=== PATIENT | female | born 1990 | race Caucasian/White ===

== ENCOUNTER 2016-06-03 11:03 | Inpatient (IN) | payer BC, OTHER ==
[2016-06-03] MEDS ORDERED: DIPHENHYDRAMINE HCL 50 MG/ML VIAL IV ONE (11:06)
[2016-06-03] MEDS ORDERED: METHYLPREDNISOLONE INJ 125 MG/2 ML SDV IV ONE (11:06)
[2016-06-03] MEDS ORDERED: FAMOTIDINE INJ/PF 20 MG/2 ML SDV IV ONE (11:07)
[2016-06-03] MEDS ORDERED: EPINEPHRINE INJ/PF 1 MG/1 ML AMPULE IM ONE (11:08)
--- NOTE | 2016-06-03 11:09 | ER Document Report ---
ED Medical Screen (RME) - General Chief Complaint: Allergic Reaction Stated Complaint: POSSIBE ALLERGIC RECTION Mode of Arrival: Wheelchair Information source: Patient Notes: Patient complains of allergic reaction possibly that started after eating nuts. Patient complains of throat swelling and difficulty breathing. Patient states she used EpiPen 2 prior to arrival without improvement of her symptoms. - Related Data Allergies/Adverse Reactions: acetaminophen [From Tylenol] Allergy (Verified 04/15/13 19:15) amoxicillin [Amoxicillin] Allergy (Verified 04/15/13 19:15) azithromycin [From Zithromax Z-Iglesia] Allergy (Verified 04/15/13 19:15) morphine [Morphine] Allergy (Verified 04/15/13 19:15) Penicillins Allergy (Verified 04/15/13 19:15) pineapple [Pineapple] Allergy (Verified 04/15/13 19:15) Shellfish * [Shellfish] Allergy (Verified 04/15/13 19:15) Sulfa (Sulfonamide Antibiotics) Allergy (Verified 04/15/13 19:15) venlafaxine HCl [From Effexor] Allergy (Verified 04/15/13 19:15) Past Medical History Pulmonary Medical History: Reports: Hx Asthma Psychiatric Medical History: Reports: Hx Bipolar Disorder - Immunizations Hx Diphtheria, Pertussis, Tetanus Vaccination: No Physical Exam - HEENT Pharynx: Uvular edema Notes: Voice hoarse
[2016-06-03] MEDS ORDERED: RACEPINEPHRINE HCL 2.25% NEB 0.5 ML AMPUL NEB ONE ×2 (11:26→11:31)
[2016-06-03] MEDS ORDERED: LORAZEPAM INJ 2 MG/1 ML VIAL ONE (11:27)
[2016-06-03] MEDS ORDERED: LORAZEPAM INJ 2 MG/1 ML VIAL IV ONE ×2 (11:32→13:26)
[2016-06-03] MEDS ORDERED: NORMAL SALINE 1000 ML 1,000 ML IV ONE (11:32)
--- NOTE | 2016-06-03 11:38 | ER Document Report ---
ED Allergic Reaction - General Chief Complaint: Allergic Reaction Stated Complaint: POSSIBE ALLERGIC RECTION Mode of Arrival: Wheelchair Information source: Patient Notes: This is a 26-year-old female who presents with concern for allergic reaction. She is uncertain as to the trigger of her reaction however she did used to EpiPen at home prior to arrival. She states that about 30 minutes prior to arrival she began feeling tightness in her throat and trouble breathing. She also states that her tongue feels itchy but not swollen. She denies any nausea or vomiting. She has had no rash or hives or generalized pruritus. She states that she felt fine when she awoke this morning and that at about 09 100 she ate a breakfast of wal[place] and eggs and some nuts which are the same nuts that she eats every morning. She also states that about an hour prior to her symptoms she did use someone else's Chapstick. Of note the patient has a prior history of allergic reaction which required hospital admission. She has never been intubated. She states that she did require an epi drip during her last admission. - Related Data Allergies/Adverse Reactions: acetaminophen [From Tylenol] Allergy (Verified 04/15/13 19:15) amoxicillin [Amoxicillin] Allergy (Verified 04/15/13 19:15) azithromycin [From Zithromax Z-Iglesia] Allergy (Verified 04/15/13 19:15) morphine [Morphine] Allergy (Verified 04/15/13 19:15) Penicillins Allergy (Verified 04/15/13 19:15) pineapple [Pineapple] Allergy (Verified 04/15/13 19:15) Shellfish * [Shellfish] Allergy (Verified 04/15/13 19:15) Sulfa (Sulfonamide Antibiotics) Allergy (Verified 04/15/13 19:15) venlafaxine HCl [From Effexor] Allergy (Verified 04/15/13 19:15) Home Medications: Current Home Medications Bupropion HCl [Wellbutrin Sr 150 mg Tablet] 150 mg PO Q12 06/03/16 [History] Gabapentin [Neurontin 400 mg Capsule] 400 mg PO Q12 06/03/16 [History] Past Medical History - General Information source: Patient - Social History Smoking Status: Former Smoker Frequency of alcohol use: Occasional Drug Abuse: Marijuana Family History: Reviewed & Not Pertinent, Malignancy Pulmonary Medical History: Reports: Hx Asthma Neurological Medical History: Reports: Hx Migraine Renal/ Medical History: Denies: Hx Peritoneal Dialysis Psychiatric Medical History: Reports: Hx Bipolar Disorder Past Surgical History: Reports: Hx Appendectomy, Hx Cholecystectomy, Hx Tonsillectomy - Immunizations Hx Diphtheria, Pertussis, Tetanus Vaccination: No Review of Systems - Review of Systems Notes: REVIEW OF SYSTEMS: CONSTITUTIONAL : Denies fever, chills, or sweats. Denies recent illness. EENT: as per HPI Denies nasal or sinus congestion. CARDIOVASCULAR: Denies chest pain. RESPIRATORY: Denies cough, cold, or chest congestion. otherwise as per HPI GASTROINTESTINAL: Denies abdominal pain. Denies nausea, vomiting, or diarrhea. GENITOURINARY: Denies difficulty urinating, painful urination, burning, frequency, or blood in urine. MUSCULOSKELETAL: Denies neck or back pain or joint pain or swelling. SKIN: Denies rash or skin lesions. HEMATOLOGIC : Denies easy bruising or bleeding. LYMPHATIC: Denies swollen, enlarged glands. NEUROLOGICAL: Denies altered mental status or loss of consciousness. Denies headache. PSYCHIATRIC: anxiety ALL OTHER SYSTEMS REVIEWED AND NEGATIVE. Physical Exam - Vital signs Vitals: Temp Pulse Resp BP Pulse Ox 98.1 F 118 H 22 H 124/81 100 06/03/16 11:06 06/03/16 11:06 06/03/16 11:06 06/03/16 11:06/03/16 11:06 - Notes Notes: PHYSICAL EXAMINATION: GENERAL: Well-appearing, well-nourished and in moderate distress and anxious, tense neck muscles and audible stridor, but able to speak in complete sentences and is very talkative HEAD: Atraumatic, normocephalic. EYES: Pupils equal round and reactive to light, extraocular movements intact, sclera anicteric, conjunctiva are normal. ENT: nares patent, oropharynx clear without exudates. Moist mucous membranes. There is no lip swelling, tongue swelling, or soft palate swelling noted. Uvula midline and normal. NECK: Normal range of motion, supple without lymphadenopathy LUNGS: Breath sounds clear to auscultation bilaterally and equal. No wheezes rales or rhonchi. Upper airway stridor noted. HEART: Regular rhythm, tachycardic rate without murmurs ABDOMEN: Soft, nontender, normoactive bowel sounds. No guarding, no rebound. No masses appreciated. EXTREMITIES: Normal range of motion, no pitting or edema. No cyanosis. NEUROLOGICAL: Cranial nerves grossly intact. Normal sensory and motor exam PSYCH: anxious affect SKIN: Warm, Dry, normal turgor, no rashes or lesions noted. Course - Re-evaluation Re-evalutation: 06/03/16 11:35 On initial presentation this patient appeared very anxious. Despite her anxiety she was very talkative and was able to speak in clear complete sentences with no problem. She did have some audible stridor with inspiration but was somewhat distractible and able to speak clearly. As noted her initial exam showed no lip swelling, tongue edema, oral swelling, or soft palate edema. Lungs demonstrated no wheezing. She was conversant and maintaining her sats at 100% on room air. Given concern for allergic reaction and her prior history she will initially be treated with IV Solu-Medrol, Benadryl, and Pepcid. Have also ordered a racemic epi neb. Also she will be given 1 mg of Ativan IV as I feel there is some component of anxiety to her symptoms. I stayed in the room with the patient for the initial 10 minutes while she was receiving these medications and she calmed down considerably and was able to speak clearly and her stridor resolved. She will continue to require frequent reassessments. 06/03/16 11:46 Patient reevaluated. She states she feels a lot better and is speaking clearly. Her lungs are clear to auscultation bilaterally and she satting 100% on room air 06/03/16 13:32 Patient remained hemodynamically stable. She is still satting 100% on room air. She is able to speak in complete sentences but she states that she feels like her throat is getting somewhat tighter again. I hear no audible stridor and her lungs are clear to auscultation bilaterally. At this point we discussed admission for observation given her history of anaphylaxis in the past and her recurrence of symptoms here in the emergency department today. She is agreeable with this plan. I discussed her case with the hospitalist Dr. Collado who will admit the patient. - Vital Signs Vital signs: Temp Pulse Resp BP Pulse Ox 98.6 F 120 H 16 107/60 99 06/03/16 19:41 06/03/16 19:41 06/03/16 19:41 06/03/16 19:41 06/03/16 19:41 - Laboratory Result Diagrams: 06/03/16 11:14 06/03/16 11:14 Laboratory results interpreted by me: 06/03/16 11:14 BUN 22 H - Diagnostic Test Radiology reviewed: Reports reviewed Critical Care Note - Critical Care Note Total time excluding time spent on procedures (mins): 35 Comments: minutes of critical care time spent in direct contact evaluating and reevaluating the patient, treating symptoms, reviewing labs and studies and speaking with family and consultants excluding any procedures Discharge - Discharge Clinical Impression: Anxiety Allergic reaction Qualifiers: Encounter type: initial encounter Qualified Code(s): T78.40XA - Allergy, unspecified, initial encounter Condition: Stable Disposition: ADMITTED OBSERVATION Admitting Provider: Hospitalist - [facility]
[2016-06-03] MEDS ORDERED: ALBUTEROL SULFATE 0.083% NEB 2.5 MG/3 ML AMPUL NEB ONE (12:10)
[2016-06-03 13:50] LABS: ABSOLUTE BASOPHILS # (AUTO) 0.1 10^3/uL (0.0-0.2); ABSOLUTE EOSINOPHILS # (AUTO) 0.1 10^3/uL (0.0-0.6); ABSOLUTE LYMPHOCYTES (AUTO) 3.4 10^3/uL (0.5-4.7); ABSOLUTE MONOCYTES (AUTO) 0.8 10^3/uL (0.1-1.4); ABSOLUTE NEUT (AUTO) 4.6 10^3/uL (1.7-8.2); BASOPHILS % (AUTO) 0.8 % (0-2); EOSINOPHILS % (AUTO) 0.6 % (0-6); HEMATOCRIT 42.8 % (36.0-47.0); HEMOGLOBIN 14.3 g/dL (12.0-15.5); HGB HCT DIFFERENCE 0.1; MEAN CORPUSCULAR HEMOGLOBIN 29.5 pg (27.0-33.4); MEAN CORPUSCULAR HGB CONC 33.4 g/dL (32.0-36.0); MEAN CORPUSCULAR VOLUME 88 fl (80-97); MONOCYTES % (AUTO) 9.4 % (3-13); RED BLOOD COUNT 4.85 10^6/uL (3.72-5.28); RED CELL DISTRIBUTION WIDTH 13.3 % (11.5-14.0); SEGMENTED NEUTROPHILS % (AUTO) 51.2 % (42-78); WHITE BLOOD COUNT 8.9 10^3/uL (4.0-10.5)
[2016-06-03 14:05] LABS: ALANINE AMINOTRANSFERASE 33 U/L (9-52); ALBUMIN 4.6 g/dL (3.5-5.0); ALKALINE PHOSPHATASE 60 U/L (38-126); ANION GAP 15 (5-19); ASPARTATE AMINO TRANSFERASE 29 U/L (14-36); BILIRUBIN,TOTAL 0.9 mg/dL (0.2-1.3); BLOOD UREA NITROGEN 22 mg/dL (7-20); CARBON DIOXIDE 24 mmol/L (22-30); CHLORIDE 103 mmol/L (98-107); CREATININE RESULT 1.08 mg/dL (0.52-1.25); GLUCOSE 107 mg/dL (75-110); POTASSIUM 4.1 mmol/L (3.6-5.0); SODIUM 142.3 mmol/L (137-145); TOTAL PROTEIN 7.9 g/dL (6.3-8.2)
--- NOTE | 2016-06-03 14:20 | PDOC H&P ---
History of Present Illness Admission Date/PCP: 06/03/16 13:58 Patient complains of: Shortness of breath History of Present Illness: MONIKA ARAGON is a 26 year old female who is had previous episodes of anaphylaxis who presented with shortness of breath and anaphylaxis. Patient reports that she was at work and began to feel chest tightness and throat tightness and took an EpiPen. Approximately 5 minutes later she had return of her symptoms and give himself another EpiPen and came into the hospital. The patient reports that she had her usual breakfast which included nuts which she has been eating this for years and had no unusual or new exposures. Patient did borrow a Chapstick from a coworker but the coworker did not use this after eating anything that the patient is allergic to. 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 The patient according to emergency physician did have upper airway stridor when she presented. At the time my exam all her symptoms have resolved. The patient is allergic to multiple medications and foods and she has never seen an developing machine operator or floatlight loading supervisor. Past Medical History Pulmonary Medical History: Reports: Asthma Neurological Medical History: Reports: Migraine Endocrine Medical History: Reports: None Renal/ Medical History: Reports: None Malignancy Medical History: Reports: None GI Medical History: Reports: None Musculoskeltal Medical History: Reports: None Skin Medical History: Reports: None Psychiatric Medical History: Reports: Bipolar Disorder Hematology: Reports: None Infectious Medical History: Reports: None Past Surgical History Past Surgical History: Reports: Appendectomy, Cholecystectomy, Tonsillectomy Social History Information Source: Patient Lives with: Spouse/Significant other Smoking Status: Former Smoker Frequency of Alcohol Use: Occasional Hx Recreational Drug Use: No Drugs: Marijuana - Advance Directive Resuscitation Status: Full Code Family History Family History: Malignancy Family History: Father at age 51 from prostate cancer. Mother is 49 alive and healthy. Parental Family History Reviewed: Yes Children Family History Reviewed: No Sibling(s) Family History Reviewed.: No Medication/Allergy Allergies/Adverse Reactions: acetaminophen [From Tylenol] Allergy (Verified 04/15/13 19:15) amoxicillin [Amoxicillin] Allergy (Verified 04/15/13 19:15) azithromycin [From Zithromax Z-Iglesia] Allergy (Verified 04/15/13 19:15) morphine [Morphine] Allergy (Verified 04/15/13 19:15) Penicillins Allergy (Verified 04/15/13 19:15) pineapple [Pineapple] Allergy (Verified 04/15/13 19:15) Shellfish * [Shellfish] Allergy (Verified 04/15/13 19:15) Sulfa (Sulfonamide Antibiotics) Allergy (Verified 04/15/13 19:15) venlafaxine HCl [From Effexor] Allergy (Verified 04/15/13 19:15) Review of Systems Constitutional: ABSENT: chills, fever(s), headache(s), weight gain, weight loss Eyes: ABSENT: visual disturbances Ears: ABSENT: hearing changes Nose, Mouth, and Throat: PRESENT: other - Anaphylaxis with throat tightening and tongue swelling Cardiovascular: ABSENT: chest pain, dyspnea on exertion, edema, orthropnea, palpitations Respiratory: PRESENT: as per HPI Gastrointestinal: ABSENT: abdominal pain, constipation, diarrhea, hematemesis, hematochezia, nausea, vomiting Genitourinary: ABSENT: dysuria, hematuria Musculoskeletal: ABSENT: joint swelling Integumentary: ABSENT: rash, wounds Neurological: ABSENT: abnormal gait, abnormal speech, confusion, dizziness, focal weakness, syncope Psychiatric: PRESENT: anxiety Endocrine: ABSENT: cold intolerance, heat intolerance, polydipsia, polyuria Hematologic/Lymphatic: ABSENT: easy bleeding, easy bruising Physical Exam Vital Signs: Temp Pulse Resp BP Pulse Ox 98.1 F 118 H 18 123/65 99 06/03/16 11:06 06/03/16 11:06 06/03/16 13:01 06/03/16 13:01 06/03/16 13:01 General appearance: PRESENT: no acute distress, well-developed, well-nourished Head exam: PRESENT: atraumatic, normocephalic Eye exam: PRESENT: conjunctiva pink, EOMI, PERRLA. ABSENT: scleral icterus Ear exam: PRESENT: normal external ear exam Mouth exam: PRESENT: moist, tongue midline Neck exam: ABSENT: carotid bruit, JVD, lymphadenopathy, thyromegaly Respiratory exam: PRESENT: clear to auscultation casimiro. ABSENT: rales, rhonchi, wheezes Cardiovascular exam: PRESENT: tachycardia. ABSENT: diastolic murmur, rubs, systolic murmur Pulses: PRESENT: normal dorsalis pedis pul Vascular exam: PRESENT: normal capillary refill GI/Abdominal exam: PRESENT: normal bowel sounds, soft. ABSENT: distended, guarding, mass, organolmegaly, rebound, tenderness Rectal exam: PRESENT: deferred Extremities exam: ABSENT: calf tenderness, clubbing, pedal edema Neurological exam: PRESENT: alert, awake, oriented to person, oriented to place , oriented to time, oriented to situation, CN II-XII grossly intact. ABSENT: motor sensory deficit Psychiatric exam: PRESENT: appropriate affect Skin exam: PRESENT: dry, intact, warm. ABSENT: cyanosis, rash Results Impressions: Chest X-Ray 06/03/16 11:37 IMPRESSION: Patchy bibasilar infiltrates. Soft Tissue Neck X-Ray 06/03/16 11:37 IMPRESSION: NEGATIVE STUDY OF THE SOFT TISSUES OF THE NECK. Assessment & Plan - Diagnosis (1) Allergic reaction Qualifiers: Encounter type: initial encounter Qualified Code(s): T78.40XA - Allergy , unspecified, initial encounter Is this a current diagnosis for this admission?: YesPlan: It's unclear what she reacted to. Patient did have this morning but has eaten nuts every morning for breakfast for quite some time. Patient received Solu- Medrol, Pepcid, epinephrine. We'll continue with the Solu-Medrol and hips it. If she does well over the next several hours she could possibly be discharged to home. I have encouraged the patient to follow-up with developing machine operator or floatlight loading supervisor after discharge. (2) Migraine Is this a current diagnosis for this admission?: YesPlan: Patient has been treating her migraines with Neurontin and Wellbutrin. (3) Anxiety Is this a current diagnosis for this admission?: YesPlan: Patient is taking Wellbutrin. - Time Time Spent: 50 to 70 Minutes - Plan Summary Plan Summary: Patient will be admitted as observation as I anticipate this will require less than a 2 midnight hospital stay.
[2016-06-03] MEDS: ALBUTEROL SULFATE 0.083% NEB 2.5 MG/3 ML AMPUL NEB PRN (15:10)
[2016-06-03] MEDS: LORAZEPAM 1 MG TABLET PO PRN ×2 (15:37→20:15)
[2016-06-03] MEDS: METHYLPREDNISOLONE INJ 40 MG/1 ML SDV IV SCH (17:18)
[2016-06-03] MEDS ORDERED: EPINEPHRINE INJ/PF 1 MG/1 ML AMPULE ONE (18:14)
[2016-06-03] MEDS ORDERED: EPINEPHRINE INJ/PF 1 MG/1 ML AMPULE SUBCUT ONE (18:45)
[2016-06-03] MEDS: ONDANSETRON HCL INJ/PF 4 MG/2 ML SDV IV PRN (20:06)
[2016-06-03] MEDS: DIPHENHYDRAMINE HCL 50 MG/ML VIAL IV PRN (20:48)
[2016-06-04] MEDS: FAMOTIDINE INJ/PF 20 MG/2 ML SDV IV SCH ×3 (00:02→22:15)
[2016-06-04] MEDS: DIPHENHYDRAMINE HCL 50 MG/ML VIAL IV PRN ×2 (03:01→10:32)
[2016-06-04] MEDS: METHYLPREDNISOLONE INJ 40 MG/1 ML SDV IV SCH ×2 (03:01→09:15)
[2016-06-04] MEDS: LORAZEPAM 1 MG TABLET PO PRN ×2 (03:36→11:24)
[2016-06-04] MEDS: ALBUTEROL SULFATE 0.083% NEB 2.5 MG/3 ML AMPUL NEB PRN ×2 (08:44→12:01)
[2016-06-04] MEDS ORDERED: SUCCINYLCHOLINE CHLORIDE INJ 200 MG/10 ML VIAL ONE (10:02)
[2016-06-04] MEDS ORDERED: RACEPINEPHRINE HCL 2.25% NEB 0.5 ML AMPUL NEB ONE ×2 (12:13→19:26)
[2016-06-04] MEDS: ONDANSETRON HCL INJ/PF 4 MG/2 ML SDV IV PRN (13:15)
[2016-06-04] MEDS ORDERED: METHYLPREDNISOLONE INJ 125 MG/2 ML SDV ONE (14:42)
--- NOTE | 2016-06-04 14:56 | PDOC PROGRESS REPORT ---
Subjective Progress Note for:: 06/04/16 Subjective:: Having shortness of breath and stridor. History of asthma. Patient does not remember any substance that she took that could've triggered the reaction. No chills or fever. The sinus congestion or coughing. No reported chest congestion. There is intermittent wheezing. No nausea or vomiting. Physical Exam Vital Signs: Temp Pulse Resp BP Pulse Ox 98.9 F 130 H 19 105/48 L 100 06/04/16 12:15 06/04/16 12:15 06/04/16 12:15 06/04/16 12:15 06/04/16 12:15 Intake & Output 06/03/16 06/04/16 06/05/16 06:59 06:59 06:59 Intake Total 742 355 Output Total 2 Balance 742 353 Weight 60.4 kg General appearance: PRESENT: cooperative, mild distress, thin Head exam: PRESENT: normocephalic Eye exam: PRESENT: conjunctiva pink, EOMI, PERRLA Mouth exam: PRESENT: moist, neck supple Neck exam: ABSENT: JVD Respiratory exam: PRESENT: clear to auscultation casimiro - Anteriorly, wheezes - Minimal Cardiovascular exam: PRESENT: RRR, tachycardia GI/Abdominal exam: PRESENT: normal bowel sounds, soft. ABSENT: diminished bowel sounds, tenderness Extremities exam: ABSENT: pedal edema Neurological exam: PRESENT: alert, awake, oriented to situation Skin exam: PRESENT: dry, warm. ABSENT: cyanosis Results Impressions: Chest X-Ray 06/03/16 11:37 IMPRESSION: Patchy bibasilar infiltrates. Soft Tissue Neck X-Ray 06/03/16 11:37 IMPRESSION: NEGATIVE STUDY OF THE SOFT TISSUES OF THE NECK. Assessment & Plan - Diagnosis (1) Allergic reaction Qualifiers: Encounter type: initial encounter Qualified Code(s): T78.40XA - Allergy , unspecified, initial encounter Is this a current diagnosis for this admission?: Yes (2) Abnormal chest x-ray Is this a current diagnosis for this admission?: Yes (3) Anxiety Is this a current diagnosis for this admission?: Yes (4) Migraine Qualifiers: Migraine type: unspecified Status migrainosus presence: without status migrainosus Intractability: not intractable Qualified Code(s): G43.909 - Migraine, unspecified, not intractable, without status migrainosus Is this a current diagnosis for this admission?: Yes - Time Time Spent with patient: 25-34 minutes - Plan Summary Plan Summary: We will repeat chest x-ray and obtain an ABG. We are going to check soft tissue neck CT scan. We will give Benadryl scheduled, start Zyrtec, continue Pepcid, increase steroids, transferred to ICU for closer monitoring. Continue bronchodilators.
[2016-06-04] MEDS ORDERED: METHYLPREDNISOLONE INJ 40 MG/1 ML SDV IV SCH (15:00)
[2016-06-04] MEDS ORDERED: CETIRIZINE 10 MG TABLET PO ONE (16:00)
[2016-06-04 16:40] LABS: ARTERIAL BLOOD BASE EXCESS -2.9 mmol/L; ARTERIAL BLOOD O2 SATURATION 99.8 % (94-98)
[2016-06-04] MEDS ORDERED: PROMETHAZINE HCL INJ 25 MG/1 ML VIAL IV ONE (16:45)
[2016-06-04] MEDS ORDERED: EPINEPHRINE INJ/PF 1 MG/1 ML AMPULE SUBCUT ONE (17:30)
[2016-06-04] MEDS: DIPHENHYDRAMINE HCL 50 MG/ML VIAL IV SCH ×2 (17:32→23:34)
[2016-06-04] MEDS ORDERED: METHYLPREDNISOLONE INJ 125 MG/2 ML SDV IV SCH ×2 (18:00→21:00)
[2016-06-04] MEDS ORDERED: EPINEPHRINE INJ/PF 1 MG/1 ML AMPULE ONE (19:37)
[2016-06-04] MEDS ORDERED: PROPOFOL 100 ML IV ONE ×2 (19:40→20:08)
[2016-06-04] MEDS ORDERED: LORAZEPAM 24 MG/240 ML BAG IV PRN (20:00)
[2016-06-04] MEDS ORDERED: PHARMACY COMMUNICATION ORDER MC NR (20:00)
[2016-06-04] MEDS ORDERED: IPRATROPIUM/ALBUTEROL 0.5-2.5 MG/3 ML AMPUL NEB PRN (20:02)
[2016-06-04] MEDS ORDERED: POTASSI CL 20 MEQ/D5NS 1L 1,000 ML IV PRN (20:03)
[2016-06-04] MEDS ORDERED: LORAZEPAM INJ 2 MG/1 ML VIAL ONE (20:10)
[2016-06-04 21:37] LABS: VENOUS BLOOD BASE EXCESS -3.5 mmol/L; VENOUS BLOOD PCO2 41.3 mmHg (35-63); VENOUS BLOOD PH 7.34 (7.30-7.42)
[2016-06-04 21:38] LABS: HEMATOCRIT 35.9 % (36.0-47.0); HGB HCT DIFFERENCE -0.2; MEAN CORPUSCULAR HEMOGLOBIN 29.3 pg (27.0-33.4); MEAN CORPUSCULAR HGB CONC 33.2 g/dL (32.0-36.0); MEAN CORPUSCULAR VOLUME 88 fl (80-97); RED BLOOD COUNT 4.07 10^6/uL (3.72-5.28); RED CELL DISTRIBUTION WIDTH 13.7 % (11.5-14.0)
[2016-06-04 21:58] LABS: ANION GAP 11 (5-19); BAND NEUTROPHILS % (MANUAL) 2 % (3-5); BASOPHILS % (MANUAL) 0 % (0-2); BLOOD UREA NITROGEN 16 mg/dL (7-20); CALCIUM 8.8 mg/dL (8.4-10.2); CARBON DIOXIDE 22 mmol/L (22-30); CHLORIDE 108 mmol/L (98-107); CREATININE RESULT 0.89 mg/dL (0.52-1.25); EOSINOPHILS % (MANUAL) 0 % (0-6); GLUCOSE 165 mg/dL (75-110); LYMPHOCYTES % (MANUAL) 3 % (13-45); MAGNESIUM 1.9 mg/dL (1.6-2.3); POTASSIUM 4.7 mmol/L (3.6-5.0); SODIUM 140.8 mmol/L (137-145); TOTAL CELLS COUNTED 100
[2016-06-04 21:59] LABS: HYPOCHROMASIA SLIGHT
[2016-06-04 22:00] LABS: WHITE BLOOD COUNT 20.1 10^3/uL (4.0-10.5)
[2016-06-04] MEDS ORDERED: ENOXAPARIN SODIUM INJ 40 MG/0.4 ML DISP.SYRIN SUBCUT ONE (22:00)
[2016-06-04 22:01] LABS: HEMOGLOBIN 11.9 g/dL (12.0-15.5)
[2016-06-04] MEDS: METHYLPREDNISOLONE INJ 125 MG/2 ML SDV IV SCH (22:15)
[2016-06-04] MEDS: NORMAL SALINE 1000 ML 1,000 ML IV PRN (23:33)
[2016-06-04] MEDS: PROPOFOL 100 ML IV PRN (23:34)
[2016-06-05 00:24] LABS: APPEARANCE,URINE CLEAR; BILIRUBIN,URINE NEGATIVE (NEGATIVE); GLUCOSE, URINE NEGATIVE (NEGATIVE); KETONES,URINE NEGATIVE (NEGATIVE); LEUKOCYTE ESTERASE,URINE NEGATIVE (NEGATIVE); NITRITE,URINE NEGATIVE (NEGATIVE); PROTEIN,URINE NEGATIVE (NEGATIVE); UROBILINOGEN,URINE NEGATIVE mg/dL (<2.0)
[2016-06-05 04:14] LABS: HEMATOCRIT 36.1 % (36.0-47.0); HEMOGLOBIN 12.1 g/dL (12.0-15.5); HGB HCT DIFFERENCE 0.2; MEAN CORPUSCULAR HEMOGLOBIN 29.3 pg (27.0-33.4); MEAN CORPUSCULAR HGB CONC 33.4 g/dL (32.0-36.0); MEAN CORPUSCULAR VOLUME 88 fl (80-97); RED BLOOD COUNT 4.12 10^6/uL (3.72-5.28); RED CELL DISTRIBUTION WIDTH 13.5 % (11.5-14.0); WHITE BLOOD COUNT 18.5 10^3/uL (4.0-10.5)
[2016-06-05 04:20] LABS: VENOUS BLOOD BASE EXCESS -1.8 mmol/L; VENOUS BLOOD HCO3 23.6 mmol/L (20-32); VENOUS BLOOD PCO2 42.9 mmHg (35-63); VENOUS BLOOD PH 7.36 (7.30-7.42)
[2016-06-05 04:29] LABS: ANION GAP 11 (5-19); BLOOD UREA NITROGEN 11 mg/dL (7-20); CALCIUM 8.6 mg/dL (8.4-10.2); CARBON DIOXIDE 24 mmol/L (22-30); CHLORIDE 108 mmol/L (98-107); CREATININE RESULT 0.69 mg/dL (0.52-1.25); GLUCOSE 127 mg/dL (75-110); POTASSIUM 4.5 mmol/L (3.6-5.0); SODIUM 142.7 mmol/L (137-145)
[2016-06-05 04:46] LABS: BASOPHILS % (MANUAL) 0 % (0-2); EOSINOPHILS % (MANUAL) 1 % (0-6); LYMPHOCYTES % (MANUAL) 4 % (13-45); TOTAL CELLS COUNTED 100
[2016-06-05 04:49] LABS: RBC MORPHOLOGY COMMENT NORMO-CYTIC/CHROMIC
[2016-06-05] MEDS: PROPOFOL 100 ML IV PRN ×3 (06:15→12:27)
[2016-06-05] MEDS: DIPHENHYDRAMINE HCL 50 MG/ML VIAL IV SCH ×2 (06:16→12:45)
[2016-06-05] MEDS: METHYLPREDNISOLONE INJ 125 MG/2 ML SDV IV SCH (06:18)
[2016-06-05] MEDS: NORMAL SALINE 1000 ML 1,000 ML IV PRN (07:17)
--- NOTE | 2016-06-05 09:41 | PDOC TRANSFER SUMMARY ---
General Admission Date/PCP: 06/03/16 13:58 Resuscitation Status: Full Code - Transfer Diagnosis (1) Acute respiratory failure Is this a current diagnosis for this admission?: Yes (2) Allergic reaction Is this a current diagnosis for this admission?: Yes (3) Abnormal chest x-ray Is this a current diagnosis for this admission?: Yes (4) Anxiety Is this a current diagnosis for this admission?: Yes (5) Migraine Is this a current diagnosis for this admission?: Yes - Transfer Medications Home Medications: Bupropion HCl [Wellbutrin Sr 150 mg Tablet] 150 mg PO Q12 06/03/16 Gabapentin [Neurontin 400 mg Capsule] 800 mg PO Q12 06/03/16 Norethindrone-E.estradiol-Iron [Lo Loestrin Fe 1-10 Tablet] 1 each PO DAILY 11/11 Transfer Medications: Current Medications Albuterol/Ipratropium (Duoneb 3 Ml Ampul) 3 ml NEB [id number] PRN PRN Reason: SHORTNESS OF BREATH Stop: 07/04/16 20:01 Cetirizine HCl (Zyrtec 10 Mg Tablet) 10 mg NG DAILY [facility] Stop: 07/05/16 09:59 Diphenhydramine HCl (Benadryl Inj 50 Mg/1 Ml Vial) 50 mg IV Q6 [facility] Stop: 07/04/16 17:59 Last Admin: 06/05/16 06:16 Dose: 50 mg Enoxaparin Sodium (Lovenox Inj 40 Mg/0.4 Ml Disp.Syrin) 40 mg SUBCUT DAILY [facility] Stop: 07/05/16 09:59 Famotidine (Pepcid Inj/Pf 20 Mg/2 Ml Sdv) 20 mg IV Q12 [facility] Stop: 07/03/16 21:59 Last Admin: 06/04/16 22:15 Dose: 20 mg Propofol (Diprivan Rtu 1000 Mg/100 Ml Inf.Bottle) 100 mls @ 0 mls/hr IV CONTINUOUS PRN; Protocol; Titrate PRN Reason: THIS MED IS NOT "PRN" Stop: 07/04/16 19:48 Last Admin: 06/05/16 06:15 Dose: 100 ml Lorazepam (Ativan Iv Infusion 24 Mg/240 Ml Bag) 24 mg in 240 mls @ 0 mls/hr IV CONTINUOUS PRN; Protocol; Titrate PRN Reason: THIS MED IS NOT "PRN" Stop: 06/11/16 19:59 Last Admin: 06/04/16 23:36 Dose: 240 ml Sodium Chloride (Nacl 0.9% 1000 Ml Iv Soln) 1,000 mls @ 125 mls/hr IV CONTINUOUS PRN PRN Reason: THIS MED IS NOT "PRN" Stop: 07/04/16 23:21 Last Admin: 06/05/16 07:17 Dose: 1,000 ml Methylprednisolone Sodium Succinate (Solu-Medrol Inj/Pf 125 Mg/2 Ml Sdv) 60 mg IV Q8 PAULA Stop: 07/04/16 21:59 Last Admin: 06/05/16 06:18 Dose: 60 mg Pharmacy Profile Note (Medication Communication Order) 1 each [facility] .NOTICE NR Stop: 07/04/16 19:59 Sodium Chloride (Saline Flush 2.5 Ml Monoject Prefil Syrin) 2.5 ml IV Q8 [facility] Stop: 07/03/16 21:59 Last Admin: 06/05/16 06:18 Dose: Not Given - Allergies Allergies/Adverse Reactions: acetaminophen [From Tylenol] Allergy (Verified 04/15/13 19:15) amoxicillin [Amoxicillin] Allergy (Verified 04/15/13 19:15) azithromycin [From Zithromax Z-Iglesia] Allergy (Verified 04/15/13 19:15) montelukast [From Singulair] Allergy (Verified 06/04/16 17:16) morphine [Morphine] Allergy (Verified 06/04/16 19:45) naproxen [From Aleve] Allergy (Verified 06/04/16 17:16) Penicillins Allergy (Verified 04/15/13 19:15) pineapple [Pineapple] Allergy (Verified 04/15/13 19:15) Shellfish * [Shellfish] Allergy (Verified 04/15/13 19:15) Sulfa (Sulfonamide Antibiotics) Allergy (Verified 04/15/13 19:15) venlafaxine HCl [From Effexor] Allergy (Verified 04/15/13 19:15) - Diet/Activity Discharge Diet: Other (Comments) - Nothing by mouth Discharge Activity: Bedrest Hospital Course Hospital Course: The patient was initially admitted to observation. The patient was placed on intravenous steroids and as needed antihistamines. The patient apparently developed intermittent worsening of shortness of breath and stridor. She was transferred to the intensive care unit . Her steroid dose was increased. Intravenous Benadryl shifted to scheduled. Pepcid intravenously was discontinued. Patient started on Zyrtec as well. As needed epinephrine was given and symptoms started to improve again. However denied before transfer the patient developed worsening stridor again is reported eventually requiring intubation. At this point [facility] was contacted for transfer, for further evaluation with ENT service and reproducer. Dr. Umanzor from the institution responded and accepted the patient. Physical Exam Vital Signs: Temp Pulse Resp BP Pulse Ox 98.6 F 61 14 119/74 97 06/05/16 08:00 06/05/16 08:00 06/05/16 09:01 06/05/16 09:00 06/05/16 09:01 Intake & Output 06/04/16 06/05/16 06/06/16 06:59 06:59 06:59 Intake Total 742 2043 Output Total 937 375 Balance 742 1106 -375 Weight 60.4 kg 59.8 kg General appearance: PRESENT: no acute distress, other - Intubated on diprivan Head exam: PRESENT: normocephalic Mouth exam: PRESENT: moist, neck supple Neck exam: ABSENT: JVD Respiratory exam: PRESENT: clear to auscultation casimiro Cardiovascular exam: PRESENT: RRR GI/Abdominal exam: PRESENT: soft. ABSENT: distended, tenderness Extremities exam: ABSENT: pedal edema Skin exam: PRESENT: dry, warm. ABSENT: cyanosis Results Laboratory Results: 06/05/16 04:02 06/05/16 04:02 06/04/16 06/04/16 06/04/16 16:25 21:20 21:20 WBC 20.1 H D RBC 4.07 Hgb 11.9 L D Hct 35.9 L MCV 88 MCH 29.3 MCHC 33.2 RDW 13.7 Plt Count 212 Seg Neutrophils % Not Reportable Lymphocytes % Not Reportable Monocytes % Not Reportable Eosinophils % Not Reportable Basophils % Not Reportable Absolute Neutrophils Not Reportable Absolute Lymphocytes Not Reportable Absolute Monocytes Not Reportable Absolute Eosinophils Not Reportable Absolute Basophils Not Reportable Carbonic Acid 0.77 L HCO3/H2CO3 Ratio 24:1 ABG pH 7.49 H ABG pCO2 25.5 L ABG pO2 371.4 H ABG HCO3 18.9 L ABG O2 Saturation 99.8 H ABG Base Excess -2.9 VBG pH VBG pCO2 VBG HCO3 VBG Base Excess FiO2 100% Sodium 140.8 Potassium 4.7 Chloride 108 H Carbon Dioxide 22 Anion Gap 11 BUN 16 Creatinine 0.89 Est GFR ( Amer) > 60 Est GFR (Non-Af Amer) > 60 Glucose 165 H Calcium 8.8 Magnesium 1.9 Urine Color Urine Appearance Urine pH Ur Specific Stitzer Urine Protein Urine Glucose (UA) Urine Ketones Urine Blood Urine Nitrite Ur Leukocyte Esterase Urine WBC (Auto) Urine RBC (Auto) 06/04/16 06/05/16 06/05/16 21:20 00:00 04:02 WBC 18.5 H RBC 4.12 Hgb 12.1 Hct 36.1 MCV 88 MCH 29.3 MCHC 33.4 RDW 13.5 Plt Count 187 Seg Neutrophils % Not Reportable Lymphocytes % Not Reportable Monocytes % Not Reportable Eosinophils % Not Reportable Basophils % Not Reportable Absolute Neutrophils Not Reportable Absolute Lymphocytes Not Reportable Absolute Monocytes Not Reportable Absolute Eosinophils Not Reportable Absolute Basophils Not Reportable Carbonic Acid HCO3/H2CO3 Ratio ABG pH ABG pCO2 ABG pO2 ABG HCO3 ABG O2 Saturation ABG Base Excess VBG pH 7.34 VBG pCO2 41.3 VBG HCO3 22.0 VBG Base Excess -3.5 FiO2 Sodium Potassium Chloride Carbon Dioxide Anion Gap BUN Creatinine Est GFR ( Amer) Est GFR (Non-Af Amer) Glucose Calcium Magnesium Urine Color STRAW Urine Appearance CLEAR Urine pH 6.0 Ur Specific Stitzer 1.020 Urine Protein NEGATIVE Urine Glucose (UA) NEGATIVE Urine Ketones NEGATIVE Urine Blood NEGATIVE Urine Nitrite NEGATIVE Ur Leukocyte Esterase NEGATIVE Urine WBC (Auto) 1 Urine RBC (Auto) 0 06/05/16 06/05/16 04:02 04:02 WBC RBC Hgb Hct MCV MCH MCHC RDW Plt Count Seg Neutrophils % Lymphocytes % Monocytes % Eosinophils % Basophils % Absolute Neutrophils Absolute Lymphocytes Absolute Monocytes Absolute Eosinophils Absolute Basophils Carbonic Acid HCO3/H2CO3 Ratio ABG pH ABG pCO2 ABG pO2 ABG HCO3 ABG O2 Saturation ABG Base Excess VBG pH 7.36 VBG pCO2 42.9 VBG HCO3 23.6 VBG Base Excess -1.8 FiO2 Sodium 142.7 Potassium 4.5 Chloride 108 H Carbon Dioxide 24 Anion Gap 11 BUN 11 Creatinine 0.69 Est GFR ( Amer) > 60 Est GFR (Non-Af Amer) > 60 Glucose 127 H Calcium 8.6 Magnesium Urine Color Urine Appearance Urine pH Ur Specific Stitzer Urine Protein Urine Glucose (UA) Urine Ketones Urine Blood Urine Nitrite Ur Leukocyte Esterase Urine WBC (Auto) Urine RBC (Auto) Impressions: Soft Tissue Neck X-Ray 06/03/16 11:37 IMPRESSION: NEGATIVE STUDY OF THE SOFT TISSUES OF THE NECK. Soft Tissue Neck CT 06/04/16 00:00 IMPRESSION: NO SIGNIFICANT FINDING IN THE SOFT TISSUES OF THE NECK. KUB X-Ray 06/04/16 19:56 IMPRESSION: NO RADIOGRAPHIC EVIDENCE FOR ACUTE ABDOMINAL DISEASE. SATISFACTORY PLACEMENT NASOGASTRIC TUBE. Chest X-Ray 06/05/16 06:30 IMPRESSION: FAINT BASILAR DENSITIES, ATELECTASIS VERSUS DEVELOPING INFILTRATE, WITH LEFT PLEURAL EFFUSION. Plan Discharge Plan: Transferred to tertiary facility for further evaluation and management. Time Spent: Less than 30 Minutes
[2016-06-05] MEDS ORDERED: ENOXAPARIN SODIUM INJ 40 MG/0.4 ML DISP.SYRIN SUBCUT SCH (10:00)
[2016-06-05] MEDS ORDERED: CETIRIZINE 10 MG TABLET NG SCH (10:00)
[2016-06-05] MEDS ORDERED: CETIRIZINE 10 MG TABLET PO SCH (10:00)
[2016-06-05] MEDS: FAMOTIDINE INJ/PF 20 MG/2 ML SDV IV SCH (10:22)
--- NOTE | 2016-06-05 10:42 | Progress Note ---
Provider Note Provider Note: 06/04/2016: Shortly after started the evening shift, I was contacted by patient's intensive care unit nurse, stating that patient's stridor had returned fairly significantly, and fairly quickly, approximately an hour after receiving intramuscular epinephrine, along with other medications. I instructed nurse to contact the nursing newspaper carriers supervisor and prepare for intubation. I went to the patient's bedside shortly thereafter. Multiple nursing staff present. She was having obvious prominent inspiratory stridor. Somewhat frightened look on her face. 100% saturation on room air. Tachycardic into the 150s and 160s. Nursing staff stated that patient actually requested to be intubated. No prior intubation for respiratory difficulty. Patient confirmed her desire and agreed with our plans. Shortly thereafter, she was intubated by the SYSTEMS SECURITY CONSULTANT. Tolerated the procedure well. 55 minutes spent in critical care time, including direct patient evaluation, chart review, discussion with patient, multiple discussions with nursing staff, entering of multiple orders into the electronic health record, and review of both her actual postintubation chest x-ray and eventual radiology reading of same. Just prior to arrival of the SYSTEMS SECURITY CONSULTANT, patient did speak by phone with friend or family member telling him of our plans. That individual reported that he would notify family members of plans. Postintubation leukocytosis felt to be secondary to stress response. No outward evidence of focus of infection. Follow-up CBC with differential.
[2016-06-05 12:37] VITALS: BP 119/71
== END 2016-06-05 13:29 | disposition short-term general hospital (02) | DRG 915 ==
LOC: ER 11:03 → EH 13:58 → INTOOBSV 13:58 → 3N 15:58 → EH 06-04 16:00 → OBSVTOIN 06-04 19:14
PROVIDERS: ADMIT Internal Medicine; ATTEND Internal Medicine
PROC: 0BH17EZ Insertion of Endotracheal Airway into Trachea, Via Natural or Artificial Opening (ICD-10-PCS; principal; 2016-06-04)
PROC: 5A1935Z Respiratory Ventilation, Less than 24 Consecutive Hours (ICD-10-PCS; 2016-06-04)
DX: T78.40XA Allergy, unspecified, initial encounter (principal); J96.00 Acute respiratory failure, unspecified whether with hypoxia or hypercapnia; G43.909 Migraine, unspecified, not intractable, without status migrainosus; F41.9 Anxiety disorder, unspecified; J45.909 Unspecified asthma, uncomplicated; F31.9 Bipolar disorder, unspecified; Z88.8 Allergy status to other drugs, medicaments and biological substances; Z88.5 Allergy status to narcotic agent; Z88.6 Allergy status to analgesic agent; Z88.1 Allergy status to other antibiotic agents; Z88.0 Allergy status to penicillin; Z91.013 Allergy to seafood; Z88.2 Allergy status to sulfonamides; Z91.018 Allergy to other foods
CPT/HCPCS: 31500; 36415; 70360; 70491; 71010; 71020; 74000; 80048; 80053; 81001; 82803; 83735; 84703; 85025; 87040; 87205; 94002; 94003; 94640; 96361; 96374; 96375; 96376; 99291; G0378; J0171; J0330; J1200; J1650; J2060; J2405; J2550; J2704; J2920; J2930; J3480; J3490; J7030; S0028

== ENCOUNTER 2019-12-25 13:19 | Emergency (ER) | payer BC, OTHER ==
--- NOTE | 2019-12-25 13:36 | ER Document Report ---
ED GI/ - General Chief Complaint: Syncope Stated Complaint: WEAKNESS Time Seen by Provider: 12/25/19 13:24 Primary Care Provider: LUCY PRABHAKAR MD [ACTIVE STAFF] - 12/27/19 Mode of Arrival: Medic Information source: Patient Notes: 29-year-old female presented to ED for complaint of syncopal episode at work. She states she was working went to the bathroom became very disoriented dizzy and shaking. She states that her boss took her gloves off of her finger and they were blue. She states she told her she had to eat some Italian fries. She states the next thing she knew she was in the ambulance and being told that her sugar and vital signs were stable. She states that she has had diarrhea all week and has been very tired weak and not able to eat. She states her last menstrual period was November 28 and she is on the NuvaRing. She does have a history of a cholecystectomy and appendectomy and a tonsillectomy she is also had a ERCP. She does have a history of anxiety depression. She states she does vape occasionally drinks and stopped using spot about a week ago. She was used in the past because she had no appetite and has not had any appetite for over a week. The patient was evaluated during the global Covid 19 pandemic, and that diagnosis was suspected/considered upon their initial presentation. Their evaluation, treatment and testing was consistent with current guidelines for patients who present with complaints or symptoms that may be related to Covid 19. REVIEW OF SYSTEMS: CONSTITUTIONAL : Very thin malnourished female complaining of dizziness syncopal episode with shaking at work. She states she tries to eat but she cannot eat because she just cannot make herself eat. She states she has had nausea and diarrhea all week and has become very tired and weak. EENT: Denies eye, ear, throat, or mouth pain or symptoms. Denies nasal or sinus congestion. CARDIOVASCULAR: Denies chest pain. RESPIRATORY: Denies cough, cold, or chest congestion. Denies shortness of breath, difficulty breathing, or wheezing. GASTROINTESTINAL: Abdominal pain nausea no appetite diarrhea times a week GENITOURINARY: Denies difficulty urinating, painful urination, burning, frequency, or blood in urine. FEMALE GENITOURINARY: Denies vaginal bleeding, abnormal or irregular periods. LMP: November 28 MUSCULOSKELETAL: Denies neck or back pain or joint pain or swelling. SKIN: Denies rash or skin lesions. HEMATOLOGIC : Denies easy bruising or bleeding. LYMPHATIC: Denies swollen, enlarged glands. NEUROLOGICAL: Became disoriented in the bathroom very dizzy shaking syncopal episode continued with disorientation and blue fingers weakness PSYCHIATRIC: Discussed need for counseling concerning her not eating and poor nutrition. ALL OTHER SYSTEMS REVIEWED AND NEGATIVE. VITAL SIGNS: Within normal limits. GENERAL: Very thin malnourished female HEAD: Normal with no signs of head trauma. EYES: PERRLA, EOMI, conjunctiva normal, no discharge. EARS: Hearing grossly intact. NOSE: Normal. THROAT: Oropharynx is normal. NECK: Normal range of motion, no tenderness, supple, no lymphadenopathy, No adenopathy, no JVD. CHEST: Clear breath sounds bilaterally. No wheezes, rales, or rhonchi. CARDIAC: Regular rate and rhythm. States syncopal episode ABDOMEN: Normal and soft generalized tenderness no masses or pulsatile masses. GASTROINTESTINAL: Bowel sounds normal GENITOURINARY: Normal, No tenderness MUSCULOSKELETAL: Good range of motion of all major joints. Extremities without clubbing, cyanosis or edema. States she feels very weak and tired NEUROLOGICAL: Alert and oriented x 3. No focal sensory or strength deficits. Speech normal. Follows commands appropriately. States she had syncopal episode at work with weakness PSYCHIATRIC: Normal Affect, judgement and mood. SKIN: Normal appearance with no rashes or lesions. TRAVEL OUTSIDE OF THE [place] IN LAST 30 DAYS: No - HPI Patient complains to provider of: Abdominal pain, Diarrhea, Other - Weakness Onset: This morning Timing/Duration: Intermittent Quality of pain: No pain Severity at maximum: Moderate Severity in ED: None Pain Level: Denies Vaginal bleeding (Compared to normal period): None LMP: December 03 Associated symptoms: Diarrhea, Nausea Exacerbated by: Standing, Movement Relieved by: Denies Similar symptoms previously: Yes Recently seen / treated by doctor: No - Related Data Allergies/Adverse Reactions: acetaminophen [From Tylenol] Allergy (Verified 04/15/13 19:15) amoxicillin [Amoxicillin] Allergy (Verified 04/15/13 19:15) azithromycin [From Zithromax Z-Iglesia] Allergy (Verified 04/15/13 19:15) montelukast [From Singulair] Allergy (Verified 06/04/16 17:16) morphine [Morphine] Allergy (Verified 06/04/16 19:45) naproxen [From Aleve] Allergy (Verified 06/04/16 17:16) Penicillins Allergy (Verified 04/15/13 19:15) pineapple [Pineapple] Allergy (Verified 04/15/13 19:15) Shellfish * [Shellfish] Allergy (Verified 04/15/13 19:15) Sulfa (Sulfonamide Antibiotics) Allergy (Verified 04/15/13 19:15) venlafaxine HCl [From Effexor] Allergy (Verified 04/15/13 19:15) Past Medical History - General Information source: Patient - Social History Smoking Status: Current Every Day Smoker - vape Frequency of alcohol use: Occasional Drug Abuse: Marijuana - States she stopped a week ago Family History: Reviewed & Not Pertinent, Malignancy Patient has suicidal ideation: No Patient has homicidal ideation: No - Past Medical History Cardiac Medical History: Reports: None Pulmonary Medical History: Reports: Hx Asthma EENT Medical History: Reports: None Neurological Medical History: Reports: None, Hx Migraine Endocrine Medical History: Reports: None Renal/ Medical History: Reports: None Malignancy Medical History: Reports: None GI Medical History: Reports: Hx Ulcer, Other - ERCP Musculoskeletal Medical History: Reports None Skin Medical History: Reports None Psychiatric Medical History: Reports: Hx Anxiety, Hx Bipolar Disorder, Hx Depression Traumatic Medical History: Reports: None Infectious Medical History: Reports: None Past Surgical History: Reports: Hx Appendectomy, Hx Cholecystectomy, Hx Tonsillectomy - Immunizations Hx Diphtheria, Pertussis, Tetanus Vaccination: No Physical Exam - Vital signs Vitals: Temp Pulse Resp BP Pulse Ox 98.1 F 81 18 116/73 96 12/25/19 13:25 12/25/19 13:25 12/25/19 13:25 12/25/19 13:25 12/25/19 13:25 Course - Re-evaluation Re-evalutation: 12/26/19 01:16 Patient was treated with 2 L IV fluids during the visit due to her dehydration. She stated she was feeling much better after the fluids. She was able to walk with a even steady gait. Vital signs were stable. Patient presents with for possible Covid 19. Patient does not have emergency worring symptoms such as nausea and vomiting weakness dizziness n or cyanosis. Patient appears suitable for discharge as they are not of an advanced age, do not have any chronic medical conditions such as diabetes, CAD, immune deficiency, chronic lung disease or chronic kidney disease. Patient's vital signs are stable and patient is nontoxic in appearance. Good return precautions have been discussed with patient, patient verbalized understanding and is agreeable with discharge plan of care at this time. - Vital Signs Vital signs: Temp Pulse Resp BP Pulse Ox 98.0 F 63 16 120/82 100 12/25/19 17:01 12/25/19 14:25 12/25/19 17:01 12/25/19 17:00 12/25/19 17:01 - Laboratory Result Diagrams: 12/25/19 13:50 12/25/19 13:50 Laboratory results interpreted by me: 12/25/19 12/25/19 13:50 17:20 Creatine Kinase 330 H Urine Protein 100 H Urine Ketones 80 H Ur Leukocyte Esterase SMALL H Discharge - Discharge Clinical Impression: Person under investigation for COVID-19 Syncope Qualifiers: Syncope type: unspecified Qualified Code(s): R55 - Syncope and collapse Condition: Stable Disposition: HOME, SELF-CARE Additional Instructions: Syncopal Episode Syncope (fainting or near-fainting) can occur from many different health problems. Or it can be a simple fainting spell requiring no treatment. It is safe for you to go home, but further evaluation will likely be necessary. Your work-up may include tests for internal bleeding, heart disease, medication problems, or near-strokes. Tests are not always required, however, depending on the nature of your problem. The warning signs of an impending faint include: dizziness, lightheadedness, nausea, hot flashes, tingling, and weakness. If this happens, lay down and put your feet up, then wait until all of these symptoms have passed before standing up again. If these episodes become recurrent, or if you develop chest pain, heart palpitations, mental confusion, blurred vision, or headache, then you should call the physician, or go to the emergency room. Dehydration Dehydration can result from vomiting or diarrhea, fever, or decreased intake of fluids. If severe, hospitalization and intravenous fluids may be required. Most cases are treated at home with fluids by mouth. For the next 24 hours, drink lots of clear fluids. In mild cases, this can be soda pop or sports drinks. For more severe dehydration, the doctor may recommend special fluids such as Pedialyte or Lytren. Try to get three liters (3 quarts) of fluid per day. If vomiting occurs, continue to drink the fluids frequently (every 15 to 20 minutes), but in small amounts (one or two ounces). Depending on the type of dehydration, the doctor may prescribe antinausea medicine or potassium replacements. Call the doctor or return for re-examination if you become progressively weak, vomit repeatedly, or have other new symptoms. Please follow-up concerning the not eating. This is very concerning I have given you a copy of your labs take these with you to your appointment please Intravenous (IV) Fluids As part of your care today, you received intravenous (IV) fluids. IV fluids are administered to patients who are dehydrated or to those who have certain chemical (electrolyte) abnormalities that need correcting. Patient was provided with discharge information including: As a person under investigation for Covid 19, the [place] department of Health and Human Services, division of public health advises you to adhere to the following guidance until your test results are reported to you. If your test result is positive, you will receive additional information from your provider and your local health department at that time. Remain at home until you are cleared by the health provider or public health authorities. Keep a log of visitors to your home, notify any visitors to your home of your isolation status. If you plan to move to a new address or leave the county, notify the local health department in your County. Call your doctor or seek care if you have an urgent medical need. Before seeking medical care, call ahead to get instructions from the provider before arriving at the medical office clinic or hospital. Notify them that you are being tested for the virus that causes Covid 19 so that arrangements can be made , as necessary, to prevent transmission to others in the healthcare setting. Next, notify the local health department in your county. If a medical emergency arises and you need to call 911, inform the first responders that you are being tested for the virus that causes Covid 19. Next, notify the local health department in your county. Forms: Smoking Cessation Education, Return to Work Referrals: LUCY PRABHAKAR MD [ACTIVE STAFF] - 12/27/19
[2019-12-25 14:17] LABS: ABSOLUTE LYMPHOCYTES (AUTO) 2.5 10^3/uL (0.5-4.7); ABSOLUTE MONOCYTES (AUTO) 0.7 10^3/uL (0.1-1.4); ABSOLUTE NEUT (AUTO) 4.2 10^3/uL (1.7-8.2); BASOPHILS % (AUTO) 0.5 % (0-2); EOSINOPHILS % (AUTO) 0.4 % (0-6); HEMATOCRIT 43.1 % (36.0-47.0); HEMOGLOBIN 14.5 g/dL (12.0-15.5); LYMPHOCYTES % (AUTO) 33.6 % (13-45); MEAN CORPUSCULAR HEMOGLOBIN 29.4 pg (27.0-33.4); MEAN CORPUSCULAR HGB CONC 33.6 g/dL (32.0-36.0); MEAN CORPUSCULAR VOLUME 88 fl (80-97); MONOCYTES % (AUTO) 9.1 % (3-13); PLATELET COUNT 252 10^3/uL (150-450); RED BLOOD COUNT 4.92 10^6/uL (3.72-5.28); RED CELL DISTRIBUTION WIDTH 13.1 % (11.5-14.0); SEGMENTED NEUTROPHILS % (AUTO) 56.4 % (42-78); TOTAL CELLS COUNTED % (AUTO) 100 %; WHITE BLOOD COUNT 7.5 10^3/uL (4.0-10.5)
[2019-12-25 14:36] LABS: ALBUMIN 4.4 g/dL (3.5-5.0); ALKALINE PHOSPHATASE 39 U/L (38-126); ANION GAP 9 (5-19); ASPARTATE AMINO TRANSFERASE 32 U/L (14-36); BILIRUBIN,DIRECT 0.2 mg/dL (0.0-0.4); BILIRUBIN,TOTAL 0.9 mg/dL (0.2-1.3); BLOOD UREA NITROGEN 20 mg/dL (7-20); CALCIUM 9.4 mg/dL (8.4-10.2); CARBON DIOXIDE 24 mmol/L (22-30); CHLORIDE 106 mmol/L (98-107); CREATINE KINASE 330 U/L (30-135); GLUCOSE 84 mg/dL (75-110); TOTAL PROTEIN 6.9 g/dL (6.3-8.2)
[2019-12-25] MEDS: NORMAL SALINE 1000 ML 1,000 ML IV PRN ×2 (14:39→15:35)
[2019-12-25 14:48] LABS: CREATINE KINASE MB 3.55 ng/mL (<4.55)
[2019-12-25 14:50] LABS: TROPONIN I < 0.012 ng/mL
[2019-12-25 17:38] LABS: APPEARANCE,URINE SLIGHTLY-CLOUDY; BILIRUBIN,URINE NEGATIVE (NEGATIVE); COLOR,URINE YELLOW; GLUCOSE, URINE NEGATIVE (NEGATIVE); KETONES,URINE 80 mg/dL (NEGATIVE); LEUKOCYTE ESTERASE,URINE SMALL (NEGATIVE); NITRITE,URINE NEGATIVE (NEGATIVE); PROTEIN,URINE 100 mg/dL (NEGATIVE); URINE SPECIFIC GRAVITY 1.026; UROBILINOGEN,URINE NEGATIVE mg/dL (<2.0)
[2019-12-25 18:17] VITALS: BP 120/82
--- NOTE | 2019-12-25 18:58 | EKG REPORT ---
SEVERITY:- ABNORMAL ECG - SINUS RHYTHM LEFT ATRIAL ABNORMALITY BORDERLINE RIGHT AXIS DEVIATION LOW VOLTAGE IN FRONTAL LEADS BORDERLINE T ABNORMALITIES, ANT-LAT LEADS : Confirmed by: Nataly Pryor MD 25-Dec-2019 18:57:59
== END 2019-12-25 17:00 | disposition home or self-care (01) ==
LOC: ER 13:19
DX: R55 Syncope and collapse (principal); R19.7 Diarrhea, unspecified; R53.1 Weakness; R63.0 Anorexia; E86.0 Dehydration; E46 Unspecified protein-calorie malnutrition; R53.83 Other fatigue; R10.9 Unspecified abdominal pain; R10.817 Generalized abdominal tenderness; F17.290 Nicotine dependence, other tobacco product, uncomplicated; Z97.5 Presence of (intrauterine) contraceptive device; Z88.8 Allergy status to other drugs, medicaments and biological substances; Z88.0 Allergy status to penicillin; Z88.1 Allergy status to other antibiotic agents; Z88.6 Allergy status to analgesic agent; Z88.5 Allergy status to narcotic agent; Z91.018 Allergy to other foods; Z91.013 Allergy to seafood; Z88.2 Allergy status to sulfonamides; Z20.828 Contact with and (suspected) exposure to other viral communicable diseases
CPT/HCPCS: 93005; 99284; 96360; 96361; 36415; 82553; 82550; 84702; 83690; 85025; 87635; 80053; 81001; 84484; 93010; J7030; C9803

== ENCOUNTER → 2020-02-18 | Outpatient (CLI) | payer OTHER ==
--- NOTE | 2020-02-18 08:50 | WOMENS IMAGING REPORT ---
EXAM DESCRIPTION: U/S ABDOMEN TOTAL IMAGES COMPLETED DATE/TIME: 02/18/2020 8:38 am REASON FOR STUDY: R10.11 RIGHT UPPER QUADRANT PAIN R10.11 RIGHT UPPER QUADRANT PAIN R11.11 VOMITIN G WITHOUT NAUSEA COMPARISON: None. TECHNIQUE: Dynamic and static grayscale images acquired of the abdomen and recorded on PACS. Additio nal selected color Doppler and spectral images recorded. Note: Study does not meet criteria for complete doppler/duplex scan LIMITATIONS: None. FINDINGS: PANCREAS: No masses. Visualized pancreatic duct normal caliber. LIVER: No masses. Echotexture normal. LIVER VASCULATURE: Normal directional flow of the main portal vein and hepatic veins. GALLBLADDER: Surgically absent. ULTRASOUND-DETECTED COOK'S SIGN: Negative. INTRAHEPATIC DUCTS AND COMMON DUCT: CBD and intrahepatic ducts normal caliber. No filling defects. INFERIOR VENA CAVA: Normal flow. AORTA: No aneurysm. RIGHT KIDNEY: Normal size. Normal echogenicity. No solid or suspicious masses. No hydronephros is. No calcifications. LEFT KIDNEY: Normal size. Normal echogenicity. No solid or suspicious masses. No hydronephrosi s. No calcifications. SPLEEN: Normal size. No solid masses. PERITONEAL AND PLEURAL SPACES: No ascites or effusions. OTHER: No other significant finding. IMPRESSION: Prior cholecystectomy. No other significant findings. TECHNICAL DOCUMENTATION: JOB ID: [id number] 2010 [employer]- All Rights Reserved Reading location - IP/workstation name: [email or web address]
== END ==
LOC: WI 08:02
PROVIDERS: ATTEND Internal Medicine Gastroenterology
DX: R11.11 Vomiting without nausea (principal); R10.11 Right upper quadrant pain
CPT/HCPCS: 76700